=== PATIENT | female | born 1960 | race Caucasian/White ===

== ENCOUNTER 2018-05-16 17:13 | Inpatient (IN) ==
[2018-05-16] MEDS ORDERED: ALBUTEROL/IPRATROPIUM 3 ML NEB RESP TX STA ×2 (18:04→19:48)
[2018-05-16 19:03] LABS: Basophils % 0.4 % (0.0-0.8); Hematocrit 53.2 VOL% (35.7-47.0); Hemoglobin 17.4 GM/DL (12.0-16.0); Immature Granulocytes % 0.4 %; Immature Granulocytes Absolute 0.04 #; Lymphocytes % 10.2 % (21.3-54.2); Mean Corpuscular HGB Conc 32.7 GM/DL (32-36); Mean Corpuscular Hemoglobin 34 PG (27-34); Mean Corpuscular Volume 103.9 FL (87-102); Mean Platelet Volume 10.4 FL (9.6-12.0); Monocytes # 0.6 10*3/uL (0.11-0.8); Monocytes % 6.6 % (1.7-12.7); Neutrophils % 82.4 % (38.7-73.9); Platelet Count 129 T/CUMM (130-400); Red Blood Count 5.12 MC/CUMM (3.8-5.5); Red Cell Distribution Width 13.9 % (9.3-17.3); White Blood Count 9.7 T/CUMM (4-12)
[2018-05-16 19:22] LABS: Alanine Aminotransferase 34 U/L (13-56); Albumin 3.1 G/DL (3.4-5.0); Alkaline Phosphatase 136 U/L (45-117); Aspartate Amino Transferase 44 U/L (0-37); Bilirubin,Total < 0.39 MG/DL (0.2-1.0); Blood Urea Nitrogen 18 MG/DL (7-18); Calcium 8.5 MG/DL (8.5-10.1); Glucose 92 MG/DL (74-106); Osmolality,Calculated 276.7 MOS/KG (273-304); Potassium 3.8 MMOL/L (3.5-5.1); Sodium 138 MMOL/L (136-145); Total Protein 6.7 G/DL (6.4-8.3)
[2018-05-16 19:31] LABS: Lactic Acid 1.2 MMOL/L (0.4-2.0)
[2018-05-16 19:34] LABS: Thyroid Stimulating Hormone 1.41 uIU/ml (0.358-3.74)
[2018-05-16] MEDS ORDERED: methylPREDNISolone SOD SUC 125 MG/2 ML VIAL IV STA (19:41)
[2018-05-16] MEDS ORDERED: AZITHROMYCIN INJ 500 MG in SODIUM CHLORIDE 0.9% 250 ML IV STA (19:42)
[2018-05-16 19:49] LABS: Apearance,Urine Slightly Hazy (Clear); Bilirubin,Urine Negative (Negative); Blood, Urine Moderate mg/dL (Negative); Glucose,Urine (UA) Negative (Negative); Hyaline Casts,Urine 3 /LPF (0-3); Ketones,Urine 5 mg/dL (Negative); Mucus,Urine Occasional /LPF (Occasional); Nitrite,Urine Negative (Negative); Protein,Urine 100 MG/DL; RBC,Urine 6 /HPF (0-4); Squamous Epithelial Cell,Urine Occasional /HPF (0-10); Urine Color Yellow (Yellow); Urine Specific Gravity 1.023 (1.001-1.035); Urine Urobilinogen < 2.0 EU/DL (0.2-1.0); WBC,Urine 1 /HPF (0-6)
[2018-05-16] MEDS: ALBUTEROL/IPRATROPIUM 3 ML NEB RESP TX SCH (19:50)
[2018-05-16 19:55] LABS: Barbiturates Screen,Urine Negative (Negative); Benzodiazepines Screen,Urine Negative (Negative); Cannabinoid Screen,Urine Negative (Negative); Opiate Screen,Urine Positive (Negative); Phencyclidine Screen,Urine Negative (Negative)
[2018-05-16] MEDS ORDERED: ALBUTEROL/IPRATROPIUM 3 ML NEB RESP TX PRN (20:25)
[2018-05-16] MEDS ORDERED: ONDANSETRON 4 MG/2 ML VIAL IV PRN (20:25)
[2018-05-16] MEDS ORDERED: ACETAMINOPHEN 325 MG TABLET PO PRN (20:25)
[2018-05-16] MEDS ORDERED: ALPRAZolam 0.25 MG TABLET PO PRN (20:28)
[2018-05-16] MEDS ORDERED: SODIUM CHLORIDE 0.9% 500 ML IV STA (20:29)
[2018-05-16] MEDS: PHENYTOIN ER 100 MG CAPSULE PO SCH (23:31)
[2018-05-16] MEDS: DILTIAZEM 30 MG TABLET PO SCH (23:31)
[2018-05-16] MEDS: APIXABAN 5 MG TABLET PO SCH (23:32)
[2018-05-16] MEDS: levETIRAcetam 250 MG TABLET PO SCH (23:33)
[2018-05-16] MEDS: GABAPENTIN 300 MG CAPSULE PO SCH (23:33)
[2018-05-16] MEDS: SODIUM CHLORIDE 0.9% 1,000 ML IV SCH (23:33)
[2018-05-17] MEDS: ALBUTEROL/IPRATROPIUM 3 ML NEB RESP TX SCH ×5 (01:05→19:49)
[2018-05-17 08:06] LABS: Basophils % 0.1 % (0.0-0.8); Hematocrit 46.4 VOL% (35.7-47.0); Immature Granulocytes % 0.4 %; Immature Granulocytes Absolute 0.03 #; Lymphocytes # 0.8 10*3/uL (1.4-4.0); Lymphocytes % 9.8 % (21.3-54.2); Mean Corpuscular HGB Conc 32.3 GM/DL (32-36); Mean Corpuscular Hemoglobin 34 PG (27-34); Mean Corpuscular Volume 105.9 FL (87-102); Monocytes # 0.5 10*3/uL (0.11-0.8); Monocytes % 5.5 % (1.7-12.7); Neutrophils # 7.1 10*3/uL (1.4-7.4); Neutrophils % 84.2 % (38.7-73.9); Platelet Count 123 T/CUMM (130-400); Red Blood Count 4.38 MC/CUMM (3.8-5.5); Red Cell Distribution Width 14.2 % (9.3-17.3); White Blood Count 8.5 T/CUMM (4-12)
[2018-05-17] MEDS: APIXABAN 5 MG TABLET PO SCH ×2 (08:24→21:20)
[2018-05-17] MEDS: PHENYTOIN ER 100 MG CAPSULE PO SCH ×2 (08:24→21:25)
[2018-05-17] MEDS: levETIRAcetam 250 MG TABLET PO SCH ×2 (08:25→21:23)
[2018-05-17] MEDS: DILTIAZEM 30 MG TABLET PO SCH ×4 (08:25→21:25)
[2018-05-17] MEDS: predniSONE 20 MG TABLET PO SCH (08:25)
[2018-05-17] MEDS: CLOPIDOGREL 75 MG TABLET PO SCH (08:25)
[2018-05-17] MEDS: AZITHROMYCIN 250 MG TABLET PO SCH (08:25)
[2018-05-17] MEDS: ATORVASTATIN 10 MG TABLET PO SCH (08:25)
[2018-05-17] MEDS: ASPIRIN EC 81 MG TABLET PO SCH (08:26)
[2018-05-17] MEDS: PANTOPRAZOLE 40 MG TABLET PO SCH (08:26)
[2018-05-17] MEDS: GABAPENTIN 300 MG CAPSULE PO SCH ×3 (08:26→21:19)
[2018-05-17] MEDS: NICOTINE 21 MG/24 HR PATCH TRANSDERM SCH (08:28)
[2018-05-17] MEDS: SODIUM CHLORIDE 0.9% 1,000 ML IV SCH ×2 (08:30→17:45)
[2018-05-17 08:31] LABS: Osmolality,Calculated 278.4 MOS/KG (273-304); Potassium 4.2 MMOL/L (3.5-5.1); Risk Ratio 3.09; VLDL CHOLESTEROL 26.2 MG/DL
[2018-05-17 09:11] LABS: Folate 9.8 NG/ML (5.4-24.0)
[2018-05-17] MEDS ORDERED: MAGNESIUM SULF RIDER 2 GM in PREMIX 1 EACH IV ONE (11:48)
[2018-05-17] MEDS: MONTELUKAST 10 MG TABLET PO SCH (12:15)
[2018-05-17] MEDS: BUDESONIDE/FORMOTEROL 160-4.5 INHALER 6 GM INH SCH ×2 (12:18→21:20)
[2018-05-17] MEDS: FOLIC ACID 1 MG TABLET PO SCH (21:18)
[2018-05-17] MEDS: LACTOBACILLUS RHAMNOSUS GG CAPSULE PO SCH (21:20)
[2018-05-18] MEDS: ALBUTEROL/IPRATROPIUM 3 ML NEB RESP TX SCH ×4 (00:23→19:28)
[2018-05-18] MEDS: SODIUM CHLORIDE 0.9% 1,000 ML IV SCH ×2 (01:52→10:31)
[2018-05-18] MEDS: AZITHROMYCIN 250 MG TABLET PO SCH (09:10)
[2018-05-18] MEDS: FOLIC ACID 1 MG TABLET PO SCH ×2 (09:10→21:34)
[2018-05-18] MEDS: levETIRAcetam 250 MG TABLET PO SCH ×2 (09:10→21:35)
[2018-05-18] MEDS: CLOPIDOGREL 75 MG TABLET PO SCH (09:10)
[2018-05-18] MEDS: DILTIAZEM 30 MG TABLET PO SCH ×4 (09:11→21:35)
[2018-05-18] MEDS: ATORVASTATIN 10 MG TABLET PO SCH (09:11)
[2018-05-18] MEDS: LACTOBACILLUS RHAMNOSUS GG CAPSULE PO SCH ×2 (09:11→21:34)
[2018-05-18] MEDS: GABAPENTIN 300 MG CAPSULE PO SCH ×3 (09:11→21:35)
[2018-05-18] MEDS: APIXABAN 5 MG TABLET PO SCH ×2 (09:11→21:36)
[2018-05-18] MEDS: PANTOPRAZOLE 40 MG TABLET PO SCH (09:11)
[2018-05-18] MEDS: predniSONE 20 MG TABLET PO SCH (09:11)
[2018-05-18] MEDS: MONTELUKAST 10 MG TABLET PO SCH (09:11)
[2018-05-18] MEDS: ASPIRIN EC 81 MG TABLET PO SCH (09:12)
[2018-05-18] MEDS: PHENYTOIN ER 100 MG CAPSULE PO SCH ×2 (09:13→21:36)
[2018-05-18] MEDS: BUDESONIDE/FORMOTEROL 160-4.5 INHALER 6 GM INH SCH ×2 (09:16→21:37)
[2018-05-18] MEDS: NICOTINE 21 MG/24 HR PATCH TRANSDERM SCH (09:18)
[2018-05-19] MEDS: ALBUTEROL/IPRATROPIUM 3 ML NEB RESP TX SCH ×4 (00:29→19:08)
[2018-05-19] MEDS: SODIUM CHLORIDE 0.9% 1,000 ML IV SCH ×2 (02:41→11:12)
[2018-05-19 05:35] LABS: Basophils % 0.2 % (0.0-0.8); Hematocrit 44.6 VOL% (35.7-47.0); Immature Granulocytes % 0.6 %; Immature Granulocytes Absolute 0.04 #; Lymphocytes # 1.2 10*3/uL (1.4-4.0); Lymphocytes % 18.1 % (21.3-54.2); Mean Corpuscular HGB Conc 31.4 GM/DL (32-36); Mean Corpuscular Hemoglobin 34 PG (27-34); Mean Corpuscular Volume 108.8 FL (87-102); Mean Platelet Volume 10.2 FL (9.6-12.0); Monocytes # 0.7 10*3/uL (0.11-0.8); Monocytes % 10.3 % (1.7-12.7); Neutrophils # 4.6 10*3/uL (1.4-7.4); Neutrophils % 70.8 % (38.7-73.9); Platelet Count 138 T/CUMM (130-400); Red Cell Distribution Width 14.3 % (9.3-17.3); White Blood Count 6.5 T/CUMM (4-12)
[2018-05-19 05:52] LABS: Alanine Aminotransferase 29 U/L (13-56); Albumin 2.2 G/DL (3.4-5.0); Alkaline Phosphatase 99 U/L (45-117); Aspartate Amino Transferase 26 U/L (0-37); Bilirubin,Total < 0.39 MG/DL (0.2-1.0); Blood Urea Nitrogen 9 MG/DL (7-18); Calcium 7.7 MG/DL (8.5-10.1); Glucose 81 MG/DL (74-106); Osmolality,Calculated 283.8 MOS/KG (273-304); Potassium 4.1 MMOL/L (3.5-5.1); Sodium 144 MMOL/L (136-145); Total Protein 5.2 G/DL (6.4-8.3)
[2018-05-19] MEDS: levETIRAcetam 250 MG TABLET PO SCH ×2 (08:59→20:40)
[2018-05-19] MEDS: GABAPENTIN 300 MG CAPSULE PO SCH ×3 (08:59→20:40)
[2018-05-19] MEDS: CLOPIDOGREL 75 MG TABLET PO SCH (09:00)
[2018-05-19] MEDS: DILTIAZEM 30 MG TABLET PO SCH ×4 (09:00→20:39)
[2018-05-19] MEDS: ASPIRIN EC 81 MG TABLET PO SCH (09:01)
[2018-05-19] MEDS: AZITHROMYCIN 250 MG TABLET PO SCH (09:01)
[2018-05-19] MEDS: PHENYTOIN ER 100 MG CAPSULE PO SCH ×2 (09:01→20:39)
[2018-05-19] MEDS: PANTOPRAZOLE 40 MG TABLET PO SCH (09:01)
[2018-05-19] MEDS: ATORVASTATIN 10 MG TABLET PO SCH (09:01)
[2018-05-19] MEDS: predniSONE 20 MG TABLET PO SCH (09:02)
[2018-05-19] MEDS: MONTELUKAST 10 MG TABLET PO SCH (09:02)
[2018-05-19] MEDS: NICOTINE 21 MG/24 HR PATCH TRANSDERM SCH (09:03)
[2018-05-19] MEDS: LACTOBACILLUS RHAMNOSUS GG CAPSULE PO SCH ×2 (09:03→20:39)
[2018-05-19] MEDS: BUDESONIDE/FORMOTEROL 160-4.5 INHALER 6 GM INH SCH ×2 (09:09→20:40)
[2018-05-19] MEDS: APIXABAN 5 MG TABLET PO SCH ×2 (09:11→20:39)
[2018-05-19] MEDS: FOLIC ACID 1 MG TABLET PO SCH ×2 (09:11→20:43)
[2018-05-19] MEDS ORDERED: SODIUM CHLORIDE 0.9% IV ONE (11:00)
[2018-05-19] MEDS ORDERED: SODIUM PHOSPHATE IV ONE (11:00)
[2018-05-19] MEDS ORDERED: FUROSEMIDE 20 MG/2 ML VIAL IV ONE (16:09)
[2018-05-20] MEDS: ALBUTEROL/IPRATROPIUM 3 ML NEB RESP TX SCH ×4 (00:53→18:59)
[2018-05-20] MEDS: SODIUM CHLORIDE 0.9% 1,000 ML IV SCH (01:37)
[2018-05-20 05:32] LABS: Basophils % 0.4 % (0.0-0.8); Eosinophils % 0.1 % (0.00-10.9); Hemoglobin 14.4 GM/DL (12.0-16.0); Immature Granulocytes % 0.9 %; Immature Granulocytes Absolute 0.06 #; Lymphocytes # 1.2 10*3/uL (1.4-4.0); Lymphocytes % 17.7 % (21.3-54.2); Mean Corpuscular HGB Conc 31.3 GM/DL (32-36); Mean Corpuscular Hemoglobin 33 PG (27-34); Mean Corpuscular Volume 105.7 FL (87-102); Monocytes # 0.6 10*3/uL (0.11-0.8); Monocytes % 9.1 % (1.7-12.7); Neutrophils # 4.9 10*3/uL (1.4-7.4); Neutrophils % 71.8 % (38.7-73.9); Platelet Count 163 T/CUMM (130-400); Red Blood Count 4.35 MC/CUMM (3.8-5.5); Red Cell Distribution Width 13.6 % (9.3-17.3); White Blood Count 6.8 T/CUMM (4-12)
[2018-05-20 05:49] LABS: Albumin 2.4 G/DL (3.4-5.0); Bilirubin,Total 0.5 MG/DL (0.2-1.0); Calcium 7.7 MG/DL (8.5-10.1); Osmolality,Calculated 282.8 MOS/KG (273-304); Potassium 3.2 MMOL/L (3.5-5.1); Total Protein 5.7 G/DL (6.4-8.3)
[2018-05-20 05:59] LABS: Hypochromasia 1+; Macrocytosis 1+
[2018-05-20 06:00] LABS: Platelet Estimate Adequate
[2018-05-20] MEDS: levETIRAcetam 250 MG TABLET PO SCH ×2 (08:33→20:02)
[2018-05-20] MEDS: APIXABAN 5 MG TABLET PO SCH ×2 (08:33→20:03)
[2018-05-20] MEDS: AZITHROMYCIN 250 MG TABLET PO SCH (08:33)
[2018-05-20] MEDS: CLOPIDOGREL 75 MG TABLET PO SCH (08:34)
[2018-05-20] MEDS: MONTELUKAST 10 MG TABLET PO SCH (08:34)
[2018-05-20] MEDS: predniSONE 20 MG TABLET PO SCH (08:34)
[2018-05-20] MEDS: ATORVASTATIN 10 MG TABLET PO SCH (08:34)
[2018-05-20] MEDS: LACTOBACILLUS RHAMNOSUS GG CAPSULE PO SCH ×2 (08:35→20:01)
[2018-05-20] MEDS: PANTOPRAZOLE 40 MG TABLET PO SCH (08:35)
[2018-05-20] MEDS: PHENYTOIN ER 100 MG CAPSULE PO SCH ×2 (08:35→20:01)
[2018-05-20] MEDS: DILTIAZEM 30 MG TABLET PO SCH ×4 (08:36→20:01)
[2018-05-20] MEDS: POTASSIUM CHLORIDE 20 MEQ TABLET PO PRN ×4 (08:42→18:12)
[2018-05-20] MEDS: NICOTINE 21 MG/24 HR PATCH TRANSDERM SCH (08:44)
[2018-05-20] MEDS: GABAPENTIN 300 MG CAPSULE PO SCH ×3 (08:46→20:03)
[2018-05-20] MEDS: BUDESONIDE/FORMOTEROL 160-4.5 INHALER 6 GM INH SCH ×2 (08:47→20:03)
[2018-05-20] MEDS: ASPIRIN EC 81 MG TABLET PO SCH (08:49)
[2018-05-20] MEDS: FOLIC ACID 1 MG TABLET PO SCH ×2 (08:49→20:01)
[2018-05-20] MEDS ORDERED: SODIUM PHOSPHATE INJ 21 MMOL in SODIUM CHLORIDE 0.9% 250 ML IV ONE (10:30)
[2018-05-21] MEDS: ALBUTEROL/IPRATROPIUM 3 ML NEB RESP TX SCH ×2 (00:13→07:18)
[2018-05-21 06:03] LABS: Basophils % 0.3 % (0.0-0.8); Eosinophils % 0.5 % (0.00-10.9); Hematocrit 47.2 VOL% (35.7-47.0); Immature Granulocytes % 1.2 %; Immature Granulocytes Absolute 0.08 #; Lymphocytes # 1.4 10*3/uL (1.4-4.0); Mean Corpuscular HGB Conc 31.8 GM/DL (32-36); Mean Corpuscular Hemoglobin 33 PG (27-34); Mean Corpuscular Volume 104.4 FL (87-102); Mean Platelet Volume 9.9 FL (9.6-12.0); Monocytes # 0.5 10*3/uL (0.11-0.8); Monocytes % 8.1 % (1.7-12.7); Neutrophils # 4.4 10*3/uL (1.4-7.4); Neutrophils % 67.9 % (38.7-73.9); Platelet Count 177 T/CUMM (130-400); Red Blood Count 4.52 MC/CUMM (3.8-5.5); Red Cell Distribution Width 13.5 % (9.3-17.3); White Blood Count 6.4 T/CUMM (4-12)
[2018-05-21 06:41] LABS: Alanine Aminotransferase 39 U/L (13-56); Albumin 2.2 G/DL (3.4-5.0); Alkaline Phosphatase 118 U/L (45-117); Aspartate Amino Transferase 31 U/L (0-37); Bilirubin,Total < 0.39 MG/DL (0.2-1.0); Blood Urea Nitrogen 7 MG/DL (7-18); Glucose 84 MG/DL (74-106); Osmolality,Calculated 279.1 MOS/KG (273-304); Potassium 4.2 MMOL/L (3.5-5.1); Sodium 142 MMOL/L (136-145); Total Protein 5.3 G/DL (6.4-8.3)
[2018-05-21 07:21] LABS: Band Neutrophils 1 % (0-10); Hypochromasia 1+; Lymphocytes 19 % (20-55); Segmented Neutrophils 75 % (50-85); Total Cells Counted 100
[2018-05-21 07:22] LABS: Platelet Estimate Adequate
[2018-05-21] MEDS: ASPIRIN EC 81 MG TABLET PO SCH (08:48)
[2018-05-21] MEDS: AZITHROMYCIN 250 MG TABLET PO SCH (08:48)
[2018-05-21] MEDS: MONTELUKAST 10 MG TABLET PO SCH (08:48)
[2018-05-21] MEDS: levETIRAcetam 250 MG TABLET PO SCH (08:49)
[2018-05-21] MEDS: LACTOBACILLUS RHAMNOSUS GG CAPSULE PO SCH (08:49)
[2018-05-21] MEDS: FOLIC ACID 1 MG TABLET PO SCH (08:50)
[2018-05-21] MEDS: DILTIAZEM 30 MG TABLET PO SCH (08:50)
[2018-05-21] MEDS: CLOPIDOGREL 75 MG TABLET PO SCH (08:50)
[2018-05-21] MEDS: PHENYTOIN ER 100 MG CAPSULE PO SCH (08:50)
[2018-05-21] MEDS: GABAPENTIN 300 MG CAPSULE PO SCH (08:50)
[2018-05-21] MEDS: predniSONE 20 MG TABLET PO SCH (08:50)
[2018-05-21] MEDS: NICOTINE 21 MG/24 HR PATCH TRANSDERM SCH (08:51)
[2018-05-21] MEDS: PANTOPRAZOLE 40 MG TABLET PO SCH (08:51)
[2018-05-21] MEDS: APIXABAN 5 MG TABLET PO SCH (08:51)
[2018-05-21] MEDS: ATORVASTATIN 10 MG TABLET PO SCH (08:51)
[2018-05-21] MEDS: BUDESONIDE/FORMOTEROL 160-4.5 INHALER 6 GM INH SCH (08:56)
[2018-05-21 11:57] VITALS: BP 147/65
== END 2018-05-21 12:16 | disposition home health service (06) | DRG 191 ==
LOC: N.ED 17:13 → N.EDINP 17:13 → N.4E 23:18 → SUATTDRO 05-17 15:10
PROVIDERS: ADMIT Internal Medicine; ATTEND Internal Medicine

== ENCOUNTER 2020-12-20 11:27 | Inpatient (IN) ==
[2020-12-20] MEDS ORDERED: SODIUM CHLORIDE 0.9% 1,000 ML IV STA ×2 (12:08→13:08)
[2020-12-20 12:37] LABS: ABG Oxygen Saturation 85.9 % (95-100); ABG PCO2 59.4 MM HG (35-48); ABG PH 7.292 (7.35-7.45); ABG PO2 53.9 MM HG (80-95); ABG TCO2 29.9 MMOL/L (23-27)
[2020-12-20 12:58] LABS: Basophils % 0.2 % (0.0-0.8); Eosinophils % 0.6 % (0.00-10.9); Hematocrit 50.6 VOL% (35.7-47.0); Immature Granulocytes % 0.6 %; Immature Granulocytes Absolute 0.03 #; Lymphocytes # 1.7 10*3/uL (1.4-4.0); Lymphocytes % 34.5 % (21.3-54.2); Mean Corpuscular HGB Conc 31.6 GM/DL (32-36); Mean Corpuscular Volume 109.5 FL (87-102); Mean Platelet Volume 11.1 FL (9.6-12.0); Monocytes % 6.7 % (1.7-12.7); Neutrophils % 57.4 % (38.7-73.9); Platelet Count 94 T/CUMM (130-400); Red Blood Count 4.62 MC/CUMM (3.8-5.5); White Blood Count 4.9 T/CUMM (4-12)
[2020-12-20 13:06] LABS: INR 1.1; PT Patient Result 11.9 SECS (10.5-12.0); Partial Thromboplastin Time 30.7 SECS (23.9-33.8)
[2020-12-20 13:41] LABS: Alanine Aminotransferase 13 U/L (13-56); Albumin 3.7 G/DL (3.4-5.0); Alkaline Phosphatase 67 U/L (45-117); Aspartate Amino Transferase 17 U/L (0-37); Bilirubin,Total < 0.39 MG/DL (0.20-1.00); Blood Urea Nitrogen 32 MG/DL (7-18); Calcium 8.3 MG/DL (8.5-10.1); Carbon Dioxide 32 MMOL/L (21-32); Estimated Glom Filtration Rate 58 ML/MIN; Glucose 85 MG/DL (74-106); Osmolality,Calculated 293.7 MOS/KG (273-304); Potassium 4.6 MMOL/L (3.5-5.1); Sodium 145 MMOL/L (136-145); Total Protein 6.3 G/DL (6.4-8.2)
[2020-12-20 13:44] LABS: Hypochromasia Slight; Microcytosis Slight; Platelet Estimate Decreased
[2020-12-20 13:52] LABS: Bacteria,Urine Occasional /HPF (Few); Bilirubin,Urine Negative (Negative); Blood, Urine Negative (Negative); Glucose,Urine (UA) Negative (Negative); Hyaline Casts,Urine 3 /LPF (0-3); Ketones,Urine 5 mg/dL (Negative); Mucus,Urine Occasional /LPF (Occasional); Nitrite,Urine Negative (Negative); Protein,Urine 100 MG/DL; RBC,Urine 1 /HPF (0-4); Urine Appearance CLEAR (Clear); Urine Color Yellow (Yellow); Urine Specific Gravity 1.033 (1.001-1.035); Urine Urobilinogen < 2.0 EU/DL (0.2-1.0)
[2020-12-20 13:54] LABS: Barbiturates Screen,Urine Negative (Negative); Benzodiazepines Screen,Urine Negative (Negative); Cannabinoid Screen,Urine Negative (Negative); Opiate Screen,Urine Positive (Negative); Phencyclidine Screen,Urine Negative (Negative)
[2020-12-20] MEDS ORDERED: GLUCAGON 1 MG VIAL IM PRN (14:04)
[2020-12-20] MEDS ORDERED: DEXTROSE 50% 25 GM/50 ML VIAL IV PRN (14:04)
[2020-12-20] MEDS ORDERED: SODIUM CHLORIDE 0.9% 500 ML IV ONE (15:09)
[2020-12-20] MEDS: methylPREDNISolone SOD SUC 40 MG/1 ML VIAL IV SCH ×2 (15:46→21:15)
[2020-12-20] MEDS: ENOXAPARIN 40 MG/0.4 ML SYRINGE SUBCUT SCH (15:46)
[2020-12-20] MEDS: AZITHROMYCIN INJ 500 MG in SODIUM CHLORIDE 0.9% 250 ML IV SCH (15:55)
[2020-12-20] MEDS: SODIUM CHLORIDE 0.9% 1,000 ML IV SCH (16:35)
[2020-12-20] MEDS: ALBUTEROL/IPRATROPIUM 3 ML NEB RESP TX SCH (20:14)
[2020-12-20] MEDS ORDERED: DIVALPROEX 500 MG TABLET PO SCH (21:00)
[2020-12-20] MEDS: levETIRAcetam 500 MG TABLET PO SCH (21:14)
[2020-12-20] MEDS: PHENYTOIN ER 100 MG CAPSULE PO SCH (21:16)
[2020-12-21] MEDS: ALBUTEROL/IPRATROPIUM 3 ML NEB RESP TX SCH ×3 (01:18→13:50)
[2020-12-21] MEDS: SODIUM CHLORIDE 0.9% 1,000 ML IV SCH ×2 (02:35→14:14)
[2020-12-21] MEDS: methylPREDNISolone SOD SUC 40 MG/1 ML VIAL IV SCH ×3 (02:52→14:14)
[2020-12-21 05:02] LABS: Basophils % 0.3 % (0.0-0.8); Hematocrit 46.9 VOL% (35.7-47.0); Hemoglobin 14.7 GM/DL (12.0-16.0); Immature Granulocytes % 1.3 %; Immature Granulocytes Absolute 0.04 #; Lymphocytes # 0.7 10*3/uL (1.4-4.0); Lymphocytes % 21.9 % (21.3-54.2); Mean Corpuscular HGB Conc 31.3 GM/DL (32-36); Mean Corpuscular Volume 110.4 FL (87-102); Mean Platelet Volume 11.4 FL (9.6-12.0); Monocytes % 5.1 % (1.7-12.7); Neutrophils % 71.4 % (38.7-73.9); Red Blood Count 4.25 MC/CUMM (3.8-5.5); Red Cell Distribution Width 14.5 % (9.3-17.3)
[2020-12-21 05:06] LABS: Platelet Count 62 T/CUMM (130-400); White Blood Count 3.1 T/CUMM (4-12)
[2020-12-21 05:25] LABS: Calcium 7.3 MG/DL (8.5-10.1); Potassium 4.2 MMOL/L (3.5-5.1)
[2020-12-21 05:32] LABS: Microcytosis Slight; Polychromasia Slight
[2020-12-21 05:33] LABS: Platelet Estimate Decreased
[2020-12-21] MEDS: PHENYTOIN ER 100 MG CAPSULE PO SCH (08:46)
[2020-12-21] MEDS: levETIRAcetam 500 MG TABLET PO SCH (08:48)
[2020-12-21] MEDS ORDERED: ASPIRIN EC 81 MG TABLET PO SCH (09:00)
[2020-12-21] MEDS ORDERED: CLOPIDOGREL 75 MG TABLET PO SCH (09:00)
[2020-12-21] MEDS ORDERED: PANTOPRAZOLE 40 MG TABLET PO SCH (09:00)
[2020-12-21 13:29] LABS: ABG HCO3 22.6 MMOL/L (20-26); ABG Oxygen Saturation 92.2 % (95-100); ABG PCO2 37.9 MM HG (35-48); ABG PH 7.385 (7.35-7.45); ABG PO2 58.6 MM HG (80-95); ABG TCO2 19.5 MMOL/L (23-27); Pt O2 Delivery Device Room Air
[2020-12-21 14:09] VITALS: BP 100/57
[2020-12-21] MEDS: ENOXAPARIN 40 MG/0.4 ML SYRINGE SUBCUT SCH (14:14)
[2020-12-21] MEDS: AZITHROMYCIN INJ 500 MG in SODIUM CHLORIDE 0.9% 250 ML IV SCH (14:14)
[2020-12-21] MEDS ORDERED: ATORVASTATIN 20 MG TABLET PO SCH (21:00)
== END 2020-12-21 15:45 | disposition home or self-care (01) | DRG 189 ==
LOC: N.ED 11:27 → SUATTDRO 14:04 → N.EDINP 14:04 → N.4E 18:20
PROVIDERS: ADMIT Internal Medicine; ATTEND Internal Medicine

== ENCOUNTER 2021-03-03 22:05 | Inpatient (IN) ==
[2021-03-03] MEDS ORDERED: NALOXONE 0.4 MG/ML VIAL IV STA (22:16)
[2021-03-03] MEDS ORDERED: ETOMIDATE 20 MG/10 ML VIAL IV STA (22:25)
[2021-03-03] MEDS ORDERED: ROCURONIUM 100 MG/10 ML VIAL IV STA (22:26)
[2021-03-03 22:33] LABS: Basophils % 0.3 % (0.0-0.8); Eosinophils # 0.1 10*3/uL (0.0-0.87); Eosinophils % 1.3 % (0.00-10.9); Hematocrit 56.1 VOL% (35.7-47.0); Hemoglobin 18.2 GM/DL (12.0-16.0); Immature Granulocytes % 0.5 %; Immature Granulocytes Absolute 0.05 #; Lymphocytes # 5.1 10*3/uL (1.4-4.0); Lymphocytes % 50.7 % (21.3-54.2); Mean Corpuscular HGB Conc 32.4 GM/DL (32-36); Mean Corpuscular Volume 109.8 FL (87-102); Mean Platelet Volume 10.9 FL (9.6-12.0); Monocytes % 7.6 % (1.7-12.7); Neutrophils % 39.6 % (38.7-73.9); Platelet Count 133 T/CUMM (130-400); Red Blood Count 5.11 MC/CUMM (3.8-5.5); Red Cell Distribution Width 14.1 % (9.3-17.3); White Blood Count 10.1 T/CUMM (4-12)
[2021-03-03 22:49] LABS: INR 1.1; PT Patient Result 11.9 SECS (10.5-12.0); Partial Thromboplastin Time 22.1 SECS (23.9-33.8)
[2021-03-03 22:54] LABS: Lactic Acid 0.7 MMOL/L (0.4-2.0)
[2021-03-03 22:57] LABS: Albumin 3.6 G/DL (3.4-5.0); Bilirubin,Total 0.4 MG/DL (0.20-1.00); Calcium 8.1 MG/DL (8.5-10.1); Total Protein 6.8 G/DL (6.4-8.2)
[2021-03-03 22:58] LABS: ABG Base Excess 3.2 MMOL/L (-2.5-2.5); ABG HCO3 27.3 MMOL/L (20-26); ABG Oxygen Saturation 99.3 % (95-100); ABG PH 7.281 (7.35-7.45); ABG TCO2 28.5 MMOL/L (23-27)
[2021-03-03 23:07] LABS: ABG PCO2 72.6 MM HG (35-48)
[2021-03-03 23:11] LABS: Osmolality,Calculated 286.4 MOS/KG (273-304); Potassium 4.9 MMOL/L (3.5-5.1)
[2021-03-03 23:21] LABS: Bilirubin,Urine Negative (Negative); Blood, Urine Small mg/dL (Negative); Glucose,Urine (UA) Negative (Negative); Hyaline Casts,Urine 21 /LPF (0-3); Ketones,Urine Negative (Negative); Mucus,Urine Occasional /LPF (Occasional); Nitrite,Urine Negative (Negative); Protein,Urine >=500 MG/DL; RBC,Urine 4 /HPF (0-4); Squamous Epithelial Cell,Urine Occasional /HPF (0-10); Urine Appearance CLEAR (Clear); Urine Color Yellow (Yellow); Urine Specific Gravity 1.014 (1.001-1.035); Urine Urobilinogen < 2.0 EU/DL (0.2-1.0)
[2021-03-03] MEDS ORDERED: SODIUM CHLORIDE 0.9% 500 ML IV STA (23:26)
[2021-03-03 23:27] LABS: Barbiturates Screen,Urine Negative (Negative); Benzodiazepines Screen,Urine Negative (Negative); Cannabinoid Screen,Urine Negative (Negative); Opiate Screen,Urine Positive (Negative); Phencyclidine Screen,Urine Negative (Negative)
[2021-03-04] MEDS ORDERED: ALBUTEROL 2.5 MG/3 ML NEB RESP TX PRN (00:09)
[2021-03-04] MEDS ORDERED: hydrALAZINE 20 MG/1 ML VIAL IV PRN (00:09)
[2021-03-04] MEDS: LACTULOSE 20 GM/30 ML UDCUP PO SCH ×4 (00:39→17:30)
[2021-03-04 01:12] LABS: ABG Base Excess 3.6 MMOL/L (-2.5-2.5); ABG HCO3 27.4 MMOL/L (20-26); ABG Oxygen Saturation 92.4 % (95-100); ABG PH 7.258 (7.35-7.45); ABG PO2 71.5 MM HG (80-95)
[2021-03-04 01:16] LABS: ABG PCO2 79.7 MM HG (35-48)
[2021-03-04 01:43] LABS: Hepatitis B Core IgM Quant 0.09 Index; Hepatitis B Surface Ag Quant 0.22 Index; Hepatitis B Surface Ag Result Non-Reactive (NonReactive); Hepatitis C Virus Ab Quant 0.02 Index; Hepatitis C Virus Ab Result Non-Reactive (NonReactive)
[2021-03-04] MEDS: methylPREDNISolone SOD SUC 40 MG/1 ML VIAL IV SCH ×4 (02:58→20:36)
[2021-03-04 04:22] LABS: Basophils % 0.3 % (0.0-0.8); Eosinophils % 0.4 % (0.00-10.9); Hemoglobin 17.1 GM/DL (12.0-16.0); Immature Granulocytes % 0.6 %; Immature Granulocytes Absolute 0.04 #; Lymphocytes # 1.8 10*3/uL (1.4-4.0); Mean Corpuscular HGB Conc 32.3 GM/DL (32-36); Mean Corpuscular Volume 108.4 FL (87-102); Mean Platelet Volume 10.7 FL (9.6-12.0); Monocytes % 7.1 % (1.7-12.7); Neutrophils % 65.6 % (38.7-73.9); Platelet Count 103 T/CUMM (130-400); Red Blood Count 4.89 MC/CUMM (3.8-5.5); Red Cell Distribution Width 14.1 % (9.3-17.3); White Blood Count 6.8 T/CUMM (4-12)
[2021-03-04 05:22] LABS: Alanine Aminotransferase 39 U/L (13-56); Albumin 3.2 G/DL (3.4-5.0); Alkaline Phosphatase 117 U/L (45-117); Aspartate Amino Transferase 73 U/L (0-37); Bilirubin,Total < 0.39 MG/DL (0.20-1.00); Blood Urea Nitrogen 25 MG/DL (7-18); Calcium 8.8 MG/DL (8.5-10.1); Carbon Dioxide 29 MMOL/L (21-32); Estimated Glom Filtration Rate 70 ML/MIN; Glucose 109 MG/DL (74-106); HDL Cholesterol 94 MG/DL (40-60); Osmolality,Calculated 290.8 MOS/KG (273-304); Potassium 3.9 MMOL/L (3.5-5.1); Risk Ratio 2.04; Sodium 144 MMOL/L (136-145); Total Protein 6.1 G/DL (6.4-8.2); Triglycerides 112 MG/DL (2-150); VLDL Cholesterol 22.4 MG/DL
[2021-03-04 06:36] LABS: ABG Base Excess 5.3 MMOL/L (-2.5-2.5); ABG HCO3 29.2 MMOL/L (20-26); ABG Oxygen Saturation 99.6 % (95-100); ABG PCO2 38.2 MM HG (35-48); ABG PH 7.486 (7.35-7.45); ABG TCO2 23.2 MMOL/L (23-27)
[2021-03-04] MEDS: ALBUTEROL/IPRATROPIUM 3 ML NEB RESP TX SCH ×3 (07:02→19:16)
[2021-03-04] MEDS: PHENYTOIN 100 MG/2 ML VIAL IV SCH ×2 (08:42→20:38)
[2021-03-04] MEDS: ENOXAPARIN 40 MG/0.4 ML SYRINGE SUBCUT SCH (08:42)
[2021-03-04] MEDS: DILTIAZEM 30 MG TABLET PO SCH ×4 (08:43→20:37)
[2021-03-04] MEDS: CLOPIDOGREL 75 MG TABLET PO SCH (08:43)
[2021-03-04] MEDS: ATORVASTATIN 10 MG TABLET PO SCH (08:44)
[2021-03-04] MEDS: GABAPENTIN 300 MG CAPSULE PO SCH ×2 (08:44→14:32)
[2021-03-04] MEDS ORDERED: INFLUENZA VIRUS VACCINE 0.5 ML SYRINGE IM ONE (09:00)
[2021-03-04] MEDS ORDERED: PNEUMOCOCCAL VACCINE (23 VALENT) 0.5 ML VIAL IM ONE (09:00)
[2021-03-04] MEDS ORDERED: PANTOPRAZOLE 40 MG TABLET PO SCH (09:00)
[2021-03-04] MEDS ORDERED: ASPIRIN EC 81 MG TABLET PO SCH (09:00)
[2021-03-04] MEDS: VALPROIC ACID INJ 500 MG in SODIUM CHLORIDE 0.9% 100 ML IV SCH ×2 (09:21→20:37)
[2021-03-04] MEDS ORDERED: SODIUM CHLORIDE 0.9% 500 ML IV ONE (12:14)
[2021-03-04] MEDS: AZITHROMYCIN INJ 500 MG in SODIUM CHLORIDE 0.9% 250 ML IV SCH (12:52)
[2021-03-04] MEDS: SODIUM CHLORIDE 0.45% 1,000 ML IV SCH (13:01)
[2021-03-04] MEDS: QUEtiapine 25 MG TABLET PO SCH (20:38)
[2021-03-04] MEDS ORDERED: MORPHINE 2 MG/1 ML SYRINGE IV PRN (20:49)
[2021-03-04] MEDS ORDERED: MORPHINE 2 MG/1 ML SYRINGE ONE (20:51)
[2021-03-04] MEDS ORDERED: LORazepam 2 MG/1 ML VIAL ONE (21:33)
[2021-03-04] MEDS ORDERED: MIDAZOLAM 100 MG in SODIUM CHLORIDE 0.9% 80 ML IV PRN (21:34)
[2021-03-04] MEDS ORDERED: LORazepam 2 MG/1 ML VIAL IV ONE (21:35)
[2021-03-04] MEDS: fentaNYL INJ 1,250 MCG in SODIUM CHLORIDE 0.9% 225 ML IV PRN (22:09)
[2021-03-05] MEDS: LACTULOSE 20 GM/30 ML UDCUP PO SCH ×4 (00:02→17:47)
[2021-03-05] MEDS: ALBUTEROL/IPRATROPIUM 3 ML NEB RESP TX SCH ×4 (00:10→20:21)
[2021-03-05] MEDS: SODIUM CHLORIDE 0.45% 1,000 ML IV SCH ×4 (00:22→21:49)
[2021-03-05] MEDS: methylPREDNISolone SOD SUC 40 MG/1 ML VIAL IV SCH ×4 (02:14→20:23)
[2021-03-05] MEDS ORDERED: PHENYLEPHRINE DRIP 40 MG/250 ML PREMIX IV ONE (02:30)
[2021-03-05] MEDS ORDERED: PHENYLEPHRINE DRIP 40 MG/250 ML PREMIX IV PRN (02:31)
[2021-03-05 04:40] LABS: ABG Base Excess -1.4 MMOL/L (-2.5-2.5); ABG HCO3 23.1 MMOL/L (20-26); ABG Oxygen Saturation 94.4 % (95-100); ABG PCO2 38.7 MM HG (35-48); ABG PH 7.394 (7.35-7.45); ABG PO2 75.6 MM HG (80-95); ABG TCO2 24.3 MMOL/L (23-27)
[2021-03-05 05:54] LABS: Basophils % 0.1 % (0.0-0.8); Hematocrit 49.3 VOL% (35.7-47.0); Hemoglobin 16.2 GM/DL (12.0-16.0); Immature Granulocytes % 0.7 %; Immature Granulocytes Absolute 0.11 #; Lymphocytes # 0.7 10*3/uL (1.4-4.0); Lymphocytes % 4.7 % (21.3-54.2); Mean Corpuscular HGB Conc 32.9 GM/DL (32-36); Mean Corpuscular Volume 106.5 FL (87-102); Mean Platelet Volume 10.9 FL (9.6-12.0); Monocytes % 3.9 % (1.7-12.7); Neutrophils % 90.6 % (38.7-73.9); Platelet Count 124 T/CUMM (130-400); Red Blood Count 4.63 MC/CUMM (3.8-5.5); Red Cell Distribution Width 14.4 % (9.3-17.3)
[2021-03-05 06:15] LABS: Phenytoin (Dilantin) 5.3 UG/ML (10-20)
[2021-03-05 06:18] LABS: Albumin 2.9 G/DL (3.4-5.0); Band Neutrophils 1 % (0-10); Bilirubin,Total 0.4 MG/DL (0.20-1.00); Calcium 8.1 MG/DL (8.5-10.1); Lymphocytes 4 % (20-55); Platelet Estimate Normal; Potassium 3.2 MMOL/L (3.5-5.1); Segmented Neutrophils 90 % (50-85); Total Cells Counted 100; Total Protein 5.5 G/DL (6.4-8.2)
[2021-03-05] MEDS ORDERED: GLUCAGON 1 MG VIAL IM PRN (09:16)
[2021-03-05] MEDS ORDERED: DEXTROSE 50% 25 GM/50 ML VIAL IV PRN (09:16)
[2021-03-05] MEDS: PANTOPRAZOLE 40 MG VIAL IV SCH (10:23)
[2021-03-05] MEDS: PHENYTOIN 100 MG/2 ML VIAL IV SCH ×2 (10:23→20:25)
[2021-03-05] MEDS: MULTIVITAMIN LIQUID (CENTRUM) 60 ML BOTTLE PO SCH (10:24)
[2021-03-05] MEDS: ATORVASTATIN 10 MG TABLET PO SCH (10:24)
[2021-03-05] MEDS: ENOXAPARIN 40 MG/0.4 ML SYRINGE SUBCUT SCH (10:24)
[2021-03-05] MEDS: DILTIAZEM 30 MG TABLET PO SCH ×4 (10:24→20:32)
[2021-03-05] MEDS: GABAPENTIN 300 MG CAPSULE PO SCH ×2 (10:24→15:29)
[2021-03-05] MEDS: ASPIRIN CHEW 81 MG TABLET PO SCH (10:25)
[2021-03-05] MEDS: POTASSIUM CHLORIDE RIDER 10 MEQ/100 ML PREMIX IV PRN ×4 (10:44→16:08)
[2021-03-05] MEDS: VALPROIC ACID INJ 500 MG in SODIUM CHLORIDE 0.9% 100 ML IV SCH ×2 (10:52→20:21)
[2021-03-05] MEDS ORDERED: MAGNESIUM SULF RIDER 4 GM/100 ML PREMIX IV PRN (11:09)
[2021-03-05] MEDS ORDERED: MAGNESIUM SULF RIDER 2 GM/50 ML PREMIX IV PRN (11:09)
[2021-03-05] MEDS ORDERED: POTASSIUM CHLORIDE 20 MEQ TABLET PO PRN (11:09)
[2021-03-05] MEDS: INSULIN REGULAR 100 UNIT/ML SUBCUT SCH ×2 (12:54→17:45)
[2021-03-05] MEDS: AZITHROMYCIN INJ 500 MG in SODIUM CHLORIDE 0.9% 250 ML IV SCH (13:03)
[2021-03-05] MEDS: fentaNYL INJ 1,250 MCG in SODIUM CHLORIDE 0.9% 225 ML IV PRN (18:30)
[2021-03-05] MEDS: QUEtiapine 25 MG TABLET PO SCH (20:22)
[2021-03-05] MEDS: GABAPENTIN 600 MG TABLET PO SCH (23:06)
[2021-03-05] MEDS ORDERED: SODIUM CHLORIDE 0.9% 500 ML IV ONE (23:33)
[2021-03-06] MEDS: LACTULOSE 20 GM/30 ML UDCUP PO SCH ×5 (00:07→22:00)
[2021-03-06] MEDS: INSULIN REGULAR 100 UNIT/ML SUBCUT SCH ×3 (00:07→14:31)
[2021-03-06] MEDS: ALBUTEROL/IPRATROPIUM 3 ML NEB RESP TX SCH ×4 (00:24→19:43)
[2021-03-06] MEDS: methylPREDNISolone SOD SUC 40 MG/1 ML VIAL IV SCH ×3 (03:06→22:01)
[2021-03-06 04:02] LABS: ABG Base Excess -2.2 MMOL/L (-2.5-2.5); ABG HCO3 22.6 MMOL/L (20-26); ABG Oxygen Saturation 98.1 % (95-100); ABG PCO2 43.4 MM HG (35-48); ABG PH 7.345 (7.35-7.45); ABG TCO2 20.2 MMOL/L (23-27)
[2021-03-06 04:03] LABS: Basophils % 0.1 % (0.0-0.8); Hematocrit 45.4 VOL% (35.7-47.0); Hemoglobin 14.9 GM/DL (12.0-16.0); Immature Granulocytes % 0.5 %; Immature Granulocytes Absolute 0.06 #; Lymphocytes # 0.4 10*3/uL (1.4-4.0); Lymphocytes % 3.5 % (21.3-54.2); Mean Corpuscular HGB Conc 32.8 GM/DL (32-36); Mean Corpuscular Volume 107.8 FL (87-102); Mean Platelet Volume 10.7 FL (9.6-12.0); Monocytes % 4.2 % (1.7-12.7); Neutrophils % 91.7 % (38.7-73.9); Red Blood Count 4.21 MC/CUMM (3.8-5.5); Red Cell Distribution Width 14.3 % (9.3-17.3); White Blood Count 12.1 T/CUMM (4-12)
[2021-03-06 04:05] LABS: Platelet Count 89 T/CUMM (130-400)
[2021-03-06 04:30] LABS: Calcium 7.7 MG/DL (8.5-10.1); Osmolality,Calculated 282.4 MOS/KG (273-304); Potassium 4.1 MMOL/L (3.5-5.1)
[2021-03-06 04:31] LABS: Lymphocytes 11 % (20-55); Platelet Estimate Decreased; Segmented Neutrophils 85 % (50-85); Total Cells Counted 100
[2021-03-06] MEDS: SODIUM CHLORIDE 0.45% 1,000 ML IV SCH ×2 (06:35→07:53)
[2021-03-06] MEDS: PANTOPRAZOLE 40 MG VIAL IV SCH (09:18)
[2021-03-06] MEDS: CLOPIDOGREL 75 MG TABLET PO SCH (09:19)
[2021-03-06] MEDS: ATORVASTATIN 10 MG TABLET PO SCH (09:19)
[2021-03-06] MEDS: DILTIAZEM 30 MG TABLET PO SCH ×4 (09:19→22:00)
[2021-03-06] MEDS: ASPIRIN CHEW 81 MG TABLET PO SCH (09:19)
[2021-03-06] MEDS: GABAPENTIN 300 MG CAPSULE PO SCH ×2 (09:19→14:58)
[2021-03-06] MEDS: PHENYTOIN 100 MG/2 ML VIAL IV SCH ×2 (09:20→22:01)
[2021-03-06] MEDS: VALPROIC ACID INJ 500 MG in SODIUM CHLORIDE 0.9% 100 ML IV SCH ×2 (09:21→22:02)
[2021-03-06] MEDS: ENOXAPARIN 40 MG/0.4 ML SYRINGE SUBCUT SCH (09:21)
[2021-03-06] MEDS: MULTIVITAMIN LIQUID (CENTRUM) 60 ML BOTTLE PO SCH (09:25)
[2021-03-06 10:50] LABS: ABG Base Excess -1.1 MMOL/L (-2.5-2.5); ABG HCO3 23.5 MMOL/L (20-26); ABG Oxygen Saturation 96.1 % (95-100); ABG PCO2 48.3 MM HG (35-48); ABG PH 7.333 (7.35-7.45); ABG PO2 94.2 MM HG (80-95); ABG TCO2 21.7 MMOL/L (23-27)
[2021-03-06] MEDS: AZITHROMYCIN INJ 500 MG in SODIUM CHLORIDE 0.9% 250 ML IV SCH (14:58)
[2021-03-06] MEDS: GABAPENTIN 600 MG TABLET PO SCH (22:00)
[2021-03-07] MEDS: ALBUTEROL/IPRATROPIUM 3 ML NEB RESP TX SCH ×4 (01:15→23:16)
[2021-03-07 03:42] LABS: ABG Base Excess 4.3 MMOL/L (-2.5-2.5); ABG HCO3 28.1 MMOL/L (20-26); ABG Oxygen Saturation 95.3 % (95-100); ABG PCO2 46.5 MM HG (35-48); ABG PH 7.415 (7.35-7.45); ABG PO2 78.5 MM HG (80-95); ABG TCO2 24.9 MMOL/L (23-27)
[2021-03-07] MEDS: methylPREDNISolone SOD SUC 40 MG/1 ML VIAL IV SCH ×3 (04:13→20:10)
[2021-03-07 04:34] LABS: Hematocrit 48.5 VOL% (35.7-47.0); Hemoglobin 15.9 GM/DL (12.0-16.0); Immature Granulocytes % 0.8 %; Lymphocytes # 0.3 10*3/uL (1.4-4.0); Lymphocytes % 2.5 % (21.3-54.2); Mean Corpuscular HGB Conc 32.8 GM/DL (32-36); Mean Corpuscular Volume 107.1 FL (87-102); Monocytes % 3.4 % (1.7-12.7); Neutrophils % 93.3 % (38.7-73.9); Platelet Count 96 T/CUMM (130-400); Red Blood Count 4.53 MC/CUMM (3.8-5.5); Red Cell Distribution Width 14.3 % (9.3-17.3); White Blood Count 11.8 T/CUMM (4-12)
[2021-03-07 04:56] LABS: Calcium 8.2 MG/DL (8.5-10.1); Lymphocytes 2 % (20-55); Osmolality,Calculated 289.7 MOS/KG (273-304); Platelet Estimate Decreased; Potassium 4.3 MMOL/L (3.5-5.1); Segmented Neutrophils 93 % (50-85); Total Cells Counted 100
[2021-03-07] MEDS: ASPIRIN CHEW 81 MG TABLET PO SCH (09:15)
[2021-03-07] MEDS: DILTIAZEM 30 MG TABLET PO SCH ×4 (09:15→20:11)
[2021-03-07] MEDS: ATORVASTATIN 10 MG TABLET PO SCH (09:15)
[2021-03-07] MEDS: LACTULOSE 20 GM/30 ML UDCUP PO SCH ×2 (09:16→20:11)
[2021-03-07] MEDS: PHENYTOIN 100 MG/2 ML VIAL IV SCH (09:16)
[2021-03-07] MEDS: GABAPENTIN 300 MG CAPSULE PO SCH ×2 (09:16→15:55)
[2021-03-07] MEDS: MULTIVITAMIN LIQUID (CENTRUM) 60 ML BOTTLE PO SCH (09:24)
[2021-03-07] MEDS: PANTOPRAZOLE 40 MG VIAL IV SCH (09:25)
[2021-03-07] MEDS: ENOXAPARIN 40 MG/0.4 ML SYRINGE SUBCUT SCH (09:25)
[2021-03-07] MEDS: MULTIVITAMIN (BEROCCA) TABLET PO SCH (09:27)
[2021-03-07] MEDS: VALPROIC ACID INJ 500 MG in SODIUM CHLORIDE 0.9% 100 ML IV SCH (09:27)
[2021-03-07] MEDS ORDERED: DIHYDROERGOTAMINE 1 MG/ML AMP IV ONE (11:30)
[2021-03-07] MEDS ORDERED: METOCLOPRAMIDE 10 MG/2 ML VIAL IV ONE (11:30)
[2021-03-07 12:27] VITALS: BP 181/49
[2021-03-07] MEDS: AZITHROMYCIN INJ 500 MG in SODIUM CHLORIDE 0.9% 250 ML IV SCH (12:30)
[2021-03-07] MEDS ORDERED: NICOTINE 14 MG/24 HR PATCH TRANSDERM PRN (15:00)
[2021-03-07] MEDS: BISOPROLOL 5 MG TABLET PO SCH (15:55)
[2021-03-07] MEDS: PHENYTOIN ER 100 MG CAPSULE PO SCH ×2 (15:55→20:11)
[2021-03-07] MEDS: DIVALPROEX 500 MG TABLET PO SCH ×2 (15:55→20:11)
[2021-03-07 17:01] LABS: Phenytoin Free Serum < 0.8 mcg/mL (1.0 - 2.0); Phenytoin Total Serum (MAYO) 1.8 mcg/mL
[2021-03-07] MEDS: levETIRAcetam 250 MG TABLET PO SCH (20:10)
[2021-03-07] MEDS: GABAPENTIN 600 MG TABLET PO SCH (20:11)
[2021-03-07] MEDS ORDERED: PHENYTOIN ER 100 MG CAPSULE PO SCH (21:00)
[2021-03-07] MEDS ORDERED: DIVALPROEX 500 MG TABLET PO SCH (21:00)
[2021-03-07] MEDS ORDERED: levETIRAcetam 500 MG TABLET PO SCH (21:00)
[2021-03-08] MEDS: ALBUTEROL/IPRATROPIUM 3 ML NEB RESP TX SCH ×2 (00:56→07:52)
[2021-03-08 04:18] LABS: Basophils % 0.1 % (0.0-0.8); Hematocrit 48.6 VOL% (35.7-47.0); Immature Granulocytes % 0.9 %; Immature Granulocytes Absolute 0.08 #; Lymphocytes # 0.4 10*3/uL (1.4-4.0); Lymphocytes % 4.7 % (21.3-54.2); Mean Corpuscular HGB Conc 32.9 GM/DL (32-36); Mean Corpuscular Volume 105.4 FL (87-102); Mean Platelet Volume 10.8 FL (9.6-12.0); Monocytes % 3.9 % (1.7-12.7); Neutrophils % 90.4 % (38.7-73.9); Platelet Count 115 T/CUMM (130-400); Red Blood Count 4.61 MC/CUMM (3.8-5.5); White Blood Count 9.4 T/CUMM (4-12)
[2021-03-08 04:30] LABS: Calcium 8.1 MG/DL (8.5-10.1); Potassium 4.1 MMOL/L (3.5-5.1)
[2021-03-08 04:35] LABS: Lymphocytes 4 % (20-55); Platelet Estimate Decreased; Segmented Neutrophils 91 % (50-85); Total Cells Counted 100
[2021-03-08] MEDS ORDERED: DILTIAZEM 60 MG TABLET PO SCH (09:00)
[2021-03-08] MEDS: GABAPENTIN 300 MG CAPSULE PO SCH (09:57)
[2021-03-08] MEDS: MULTIVITAMIN (BEROCCA) TABLET PO SCH (09:58)
[2021-03-08] MEDS: levETIRAcetam 250 MG TABLET PO SCH (09:58)
[2021-03-08] MEDS: DIVALPROEX 500 MG TABLET PO SCH (09:59)
[2021-03-08] MEDS: CLOPIDOGREL 75 MG TABLET PO SCH (09:59)
[2021-03-08] MEDS: LACTULOSE 20 GM/30 ML UDCUP PO SCH (09:59)
[2021-03-08] MEDS: PHENYTOIN ER 100 MG CAPSULE PO SCH (09:59)
[2021-03-08] MEDS: ATORVASTATIN 10 MG TABLET PO SCH (09:59)
[2021-03-08] MEDS: ASPIRIN CHEW 81 MG TABLET PO SCH (09:59)
[2021-03-08] MEDS: BISOPROLOL 5 MG TABLET PO SCH (10:00)
[2021-03-08] MEDS ORDERED: predniSONE 20 MG TABLET PO SCH (10:00)
[2021-03-08] MEDS: methylPREDNISolone SOD SUC 40 MG/1 ML VIAL IV SCH (10:11)
[2021-03-08] MEDS: AZITHROMYCIN INJ 500 MG in SODIUM CHLORIDE 0.9% 250 ML IV SCH (13:07)
== END 2021-03-08 13:40 | disposition home health service (06) | DRG 208 ==
LOC: EDBD → EDUNIT# → N.ED 22:05 → N.EDINP 03-04 00:09 → SUATTDRO 03-04 00:09 → N.CC 03-04 00:48
PROVIDERS: ADMIT Family Medicine; ATTEND Internal Medicine